=== PATIENT | female | born 2000 | race Caucasian/White ===

== ENCOUNTER 2022-01-13 11:39 | Inpatient (IN) ==
[~2022-01-13 11:39] MED LIST: Famotidine 20 MG/2 ML VIAL IVP PRN; Metoclopramide 10 MG/2 ML VIAL IVP PRN; Naloxone 0.4 MG/ML INJ IVP PRN; Oxytocin 30 UNIT/503 ML BAG IVC ONE
[2022-01-13 13:10] LABS: Basophils % 0.1 %; Eosinophils % 0.1 %; Hematocrit 39.5 % (35.3-44.9); Hemoglobin 13.2 g/dL (11.5-15.4); Immature Granulocytes % 0.4 % (0-4); Lymphocytes # 0.9 K/mcL (0.6-4.6); Lymphocytes % 4.8 %; Mean Corpuscular HGB Conc 33.4 g/dL (31.6-35.5); Mean Corpuscular Hemoglobin 27.4 pg (28.0-33.3); Mean Corpuscular Volume 82.1 fL (83.0-100.0); Monocytes # 0.7 K/mcL (0.0-1.3); Monocytes % 3.5 %; Neutrophils # 17.2 K/mcL (1.6-8.9); Platelet Count 167 K/mcL (140-400); Red Blood Count 4.81 M/mcL (3.82-4.97); Red Cell Distribution Width 13.4 % (11.5-14.5); Segmented Neutrophils % 91.1 %; White Blood Count 18.9 K/mcL (4.3-11.1)
[2022-01-13 13:22] LABS: Amphetamine Screen,Urine Negative ng/mL (Cutoff=1000); Barbiturate Screen,Urine Negative ng/mL (Cutoff=200); Benzodiazepines Screen,Urine Negative ng/mL (Cutoff=200); Cannabinoid Screen,Urine Negative ng/mL (Cutoff = 50); Cocaine Screen,Urine Negative ng/mL (Cutoff= 300); Opiate Screen,Urine Negative ng/mL (Cutoff=300); Phencyclidine Screen,Urine Negative ng/mL (Cutoff=25)
[2022-01-13] MEDS ORDERED: Measles/Mumps/Rubella Vacc 0.5 ML VIAL SQ PRN (14:58)
[2022-01-13] MEDS ORDERED: Rho Immune Globulin 1,500 UNIT SYRINGE IM PRN (14:58)
[2022-01-13] MEDS ORDERED: Ondansetron ODT 4 MG TAB.RAPDIS SL PRN (14:58)
[2022-01-13] MEDS ORDERED: Lanolin 7 G OINT...G. TP PRN (14:58)
[2022-01-13] MEDS ORDERED: Benzocaine/Menthol 56 GM AEROSOL SPRAY TP PRN (14:58)
[2022-01-13] MEDS: Ibuprofen 600 MG TABLET PO SCH ×2 (16:01→21:11)
[2022-01-13] MEDS: Acetaminophen 325 MG TABLET PO SCH ×2 (18:00→21:12)
[2022-01-14 03:28] VITALS: TEMP 98
[2022-01-14 07:22] VITALS: BP 121/82; PULSE 98; O2SAT 98
[2022-01-14] MEDS ORDERED: Prenatal Vit/FA 1 EACH TABLET PO SCH (09:00)
[2022-01-14] MEDS: Ibuprofen 600 MG TABLET PO SCH (14:54)
[2022-01-14] MEDS: Acetaminophen 325 MG TABLET PO SCH (14:54)
== END 2022-01-14 15:37 | disposition home or self-care (01) | DRG 560 ==
LOC: 1NENULAB → 1NENUOBS 14:48
PROVIDERS: ADMIT Advanced Practice Midwife; ATTEND Advanced Practice Midwife